=== PATIENT | female | born 1975 | race Caucasian/White ===

== ENCOUNTER 2021-05-14 07:19 | Outpatient (CLI) | payer OTHER ==
[2021-05-14 15:15] LABS: ALBUMIN 3.8 g/dL (3.2-5.5); ALBUMIN/GLOBULIN RATIO 1.2 (1.0-2.2); ALKALINE PHOSPHATASE 35 IU/L (42-121); ALT ALANINE AMINOTRANSFERASE 33 IU/L (10-60); AST ASPARTATE AMINOTRANSFERASE 24 IU/L (10-42); BILIRUBIN,TOTAL 0.6 mg/dL (0.2-1.0); BUN - BLOOD UREA NITROGEN 12 mg/dL (6-20); CALCIUM 9.1 mg/dL (8.5-10.3); CARBON DIOXIDE - CO2 25 mmol/L (21-32); CHLORIDE 101 mmol/L (101-111); CHOLESTEROL 262 mg/dL; CREATININE 0.6 mg/dL (0.4-1.0); GFR - MDRD 107 (>89); GLUCOSE 101 mg/dL (70-100); HDL CHOLESTEROL 52 mg/dL; LDL CHOLESTEROL,CALCULATED 182 mg/dL; LDL/HDL RATIO 3.5 (<4.4); POTASSIUM 4.1 mmol/L (3.5-5.0); SODIUM 134 mmol/L (135-145); TOTAL PROTEIN 6.9 g/dL (6.7-8.2); TRIGLYCERIDES 138 mg/dL; VLDL CHOLESTEROL 28 mg/dL
[2021-05-14 15:23] LABS: THYROID STIMULATING HORMONE 2.42 uIU/mL (0.34-5.60)
[2021-05-14 18:05] LABS: ESTIMATED AVERAGE GLUCOSE 117 mg/dL (70-100); HEMOGLOBIN A1c% 5.7 % (4.27-6.07)
== END 2021-05-14 07:20 | disposition home or self-care (01) ==
LOC: LAB.S 07:19
DX: E66.9 Obesity, unspecified (principal); Z13.1 Encounter for screening for diabetes mellitus; Z13.220 Encounter for screening for lipoid disorders; Z13.228 Encounter for screening for other metabolic disorders; Z13.29 Encounter for screening for other suspected endocrine disorder
CPT/HCPCS: 36415; 80053; 80061; 81599; 83036; 83525; 83721; 84443; 86141

== ENCOUNTER 2021-12-29 07:21 | Outpatient (CLI) | payer OTHER ==
[2021-12-29 15:38] LABS: ALBUMIN 4.1 g/dL (3.2-5.5); BILIRUBIN,DIRECT 0.1 mg/dL (0.1-0.5); BILIRUBIN,TOTAL 0.6 mg/dL (0.2-1.0); CRP HIGH SENSITIVITY 2.6 mg/L; TOTAL PROTEIN 7.3 g/dL (6.7-8.2)
[2021-12-29 20:18] LABS: ESTIMATED AVERAGE GLUCOSE 111 mg/dL (70-100); HEMOGLOBIN A1c% 5.5 % (4.27-6.07)
== END 2021-12-29 07:22 | disposition home or self-care (01) ==
LOC: LAB.S 07:21
DX: E78.5 Hyperlipidemia, unspecified (principal); E66.9 Obesity, unspecified; R79.82 Elevated C-reactive protein (CRP); R73.01 Impaired fasting glucose; E88.89 Other specified metabolic disorders; R73.03 Prediabetes; Z68.38 Body mass index [BMI] 38.0-38.9, adult
CPT/HCPCS: 36415; 80076; 82947; 83036; 83525; 86141